=== PATIENT | male | born 1970 | race Caucasian/White ===

== ENCOUNTER 2021-06-30 09:41 | Day surgery (SDC) | payer OTHER, SELFPAY ==
--- NOTE | 2021-06-29 08:51 | HO.ANESPROP2 ---
Documented by User: Marlena Bryan NP 06/29/21 08:52 HPI - Anesthesia Eval Consult details Narrative: 51yo M for Upper Endoscopy with Balloon Dilitation [facility] Past Medical History Medical History (Updated 06/29/21 @ 08:26 by Kayce Daniels, RN) Asthma Barretts esophagus GERD (gastroesophageal reflux disease) Rheumatoid arthritis Social History Social History Advance Directives: No Advance Directives Information Provided: Yes Meds Allergies Allergy/AdvReac Type Severity Reaction Status Date / Time Penicillins [PCN] Allergy Unknown Verified 06/29/21 08:24 Exam Exam Date and Time: June 29, [id number] Assessment and Plan Assessment Anesthesia Assessment: Chart Reviewed Documented by User: Elena Wilburn MD 06/30/21 09:56 [facility], [facility] Past Medical History Medical History (Updated 06/29/21 @ 08:26 by Kayce Daniels RN) Asthma Barretts esophagus GERD (gastroesophageal reflux disease) Rheumatoid arthritis Functional capacity: independent ambulation Family History Family history of problems with anesthesia: No Surgical History History of Problems with Anesthesia: No Social History Social History Advance Directives: No Advance Directives Information Provided: Yes Meds Allergies Allergy/AdvReac Type Severity Reaction Status Date / Time Penicillins [PCN] Allergy Unknown Verified 06/29/21 08:24 Exam Airway Mallampati Class: II TM Dist: >3cm Neck ROM: Full Heart: RRR Lungs: CTA Assessment and Plan Final Anesthetic Review Family History of Problems with Anesthesia: No History of Problems with Anesthesia: No ASA Class: II Final Preanesthetic Review: No Changes in Pt Med Stat, Meds/Allgs Chart Reviewed, Consent Obtained/Reviewed and Anes Risks/Benef Reviewed Patient Risk: Low Procedure Risk: Low Anesthetic Plan Anesthetic Plan: MAC: Disposition: Standard PACU
--- NOTE | 2021-06-30 | ECG_ITS ---
Test Reason : preop Blood Pressure : / mmHG Vent. Rate : 067 BPM Atrial Rate : 067 BPM P-R Int : 182 ms QRS Dur : 146 ms QT Int : 428 ms P-R-T Axes : -10 -74 024 degrees QTc Int : 452 ms Normal sinus rhythm Right bundle branch block Left anterior fascicular block Bifascicular block Abnormal ECG No previous ECGs available Referred By: Elena Wilburn Electronically Signed By:YANCI DOOLEY MD
[2021-06-30 09:54] VITALS: BMI 17.1
--- NOTE | 2021-06-30 10:18 | PC.NURSE ---
question of possible AFIB? Dr Thomason aware and EKG ordered.
[2021-06-30 10:22] VITALS: BP 111/76; PULSE 73; RESP 19; TEMP 36.6; O2SAT 97
--- NOTE | 2021-06-30 10:40 | PC.NURSE ---
Dr Thomason saw EKG, nsr with rbb ok to proceed
[2021-06-30 12:47] VITALS: BP 109/68; PULSE 85; RESP 16; TEMP 36.8; O2SAT 99
--- NOTE | 2021-06-30 12:52 | PM.OP ---
Brief Operative Note Date of Service: 06/30/21 Pre-op diagnosis: Dysphagia Post-op diagnosis: other (Erosive esophagitis, Esophageal stricture, Gastritis) Procedure: EGD with brushings and biopsies Surgeon: Vincent Chau Anesthesia: MAC Was an [employer] used for this Procedure?: No Estimated blood loss (mL): 3.0 Pathology: other (A. Esophageal stricture 37-39cm B. Proximal stomach C. Esophagus at 37. Brushings submitted for cytology) Condition: stable Disposition: PACU
[2021-06-30 13:02] VITALS: BP 100/68; PULSE 78; RESP 16; O2SAT 98
[2021-06-30 13:17] VITALS: BP 105/73; PULSE 68; RESP 16; O2SAT 98
[2021-06-30 13:32] VITALS: BP 115/82; PULSE 69; RESP 16; O2SAT 98
--- NOTE | 2021-06-30 13:39 | OP_ITS ---
SURGEON: Vincent Chau MD INDICATIONS: The patient presents for evaluation of dysphagia and weight loss. Full consent was obtained from him for this, including risks of bleeding and perforation. PREOPERATIVE DIAGNOSIS: POSTOPERATIVE DIAGNOSIS: PROCEDURE PERFORMED: Esophagogastroduodenoscopy with brushings and biopsies. ESTIMATED BLOOD LOSS: COMPLICATIONS: ANESTHESIA: Monitored anesthesia care. ASSISTANTS: SPECIMENS: PREOPERATIVE DIAGNOSES: Dysphagia and weight loss. POSTOPERATIVE DIAGNOSES: Dysphagia and weight loss, ulcerated esophageal stricture, proximal gastritis, rule out neoplasm. DESCRIPTION OF PROCEDURE: The patient was placed in the left lateral decubitus position. The Olympus video gastroscope was passed in the posterior oropharynx and upper esophagus under direct vision. The scope was passed slowly to the distal esophagus. There were few small pieces of retained food particles in the distal esophagus. The distal esophagus was notable for some circumferential narrowing and an approximately 2 cm long ulcerated and very friable stricture. However, the scope was able to be pass this fairly easily and without much pressure. The scope entered into the stomach and was advanced to the pylorus. The duodenum was cannulated to the descending portion. The duodenum including the bulb appeared normal without mass or ulceration. The scope was withdrawn back into the stomach. The gastric antrum and body appeared normal with good peristalsis. The scope was retroflexed visualizing the proximal stomach carefully, which revealed evidence of gastritis and edema with associated friability, but no mass or ulceration. The scope was straightened. Biopsies were obtained from the proximal stomach. The distal esophagus and gastroesophageal junction were carefully inspected. Again, this area was quite ulcerated with friability and edema. There was no definitive mass. There was clearly some narrowing. I initially obtained brushings from the esophagus between 37 and 39 cm. I then obtained multiple biopsies from the same area. The tissue came off in chunks. The entire area was very friable. I also obtained biopsies of the esophagus at 37 cm right above the stricture. Given the significant inflammation and friability, I did not dilate the area. Again, the scope passed this fairly easily. Proximal to 37 cm, the esophageal mucosa appeared normal. The scope was withdrawn from the patient. He tolerated the procedure well and was returned to the recovery area in stable condition. IMPRESSION: 1. Significant distal esophagitis with associated esophageal stricture, status post brushings and biopsies, R/O neoplasm 2. Gastritis. PLAN: The results of the biopsies and brushings will be checked. He will be treated with omeprazole 40 mg b.i.d., which I gave him a prescription for today. He will then continue that and I will plan to repeat the endoscopy within 1 month. Obviously, if there is malignancy, we would proceed in a different direction with CT scan and oncology referral. In the meantime, he will stay on a very soft and primarily full liquid diet to avoid any esophageal obstruction. He will avoid all aspirin and NSAIDs long-term as well. This has all been discussed with the patient's parents today in detail. MD MARLINE Alicia/MARISSA / [id number] MTDD
== END 2021-06-30 14:26 | disposition home or self-care (01) ==
PROVIDERS: PCP Family Medicine; Visit Provider Internal Medicine
PROC: (CPT 43239; principal; 2021-06-30 10:50)
DX: K22.2 Esophageal obstruction (principal); R63.4 Abnormal weight loss; Z68.1 Body mass index [BMI] 19.9 or less, adult; C15.9 Malignant neoplasm of esophagus, unspecified; K21.9 Gastro-esophageal reflux disease without esophagitis; K29.50 Unspecified chronic gastritis without bleeding; K20.80 Other esophagitis without bleeding; J45.909 Unspecified asthma, uncomplicated; M06.9 Rheumatoid arthritis, unspecified; F17.210 Nicotine dependence, cigarettes, uncomplicated; Z79.899 Other long term (current) drug therapy; Z88.0 Allergy status to penicillin
CPT/HCPCS: 43239; 88112; 88305; 88342; 88360; 93005; J2250

== ENCOUNTER 2021-07-07 16:22 | Outpatient (REF) | payer OTHER, SELFPAY ==
[2021-07-07 16:40] LABS: MANUAL DIFF FLAG NO
[2021-07-07 16:59] LABS: Eosinophils Percent Auto 0.2 % (0-4); Hematocrit 44.4 % (42.0-52.0); Hemoglobin 14.8 g/dl (14.0-18.0); Imm Gran Abs Auto 0.03 X10*3/uL (0.00-0.03); Imm Gran Pct Auto 0.6 % (0.0-0.4); Lymphocytes Absolute Auto 0.8 X10*3/uL (1.2-4.9); Lymphocytes Percent Auto 15.8 % (20-40); Mean Corpuscular HGB Conc 33.3 g/dl (31.0-36.0); Mean Corpuscular Hemoglobin 28.7 pg (27.0-33.0); Mean Platelet Volume 9.1 fL (9.4-12.4); Monocytes Absolute Auto 0.2 X10*3/uL (0.1-1.2); Neutrophils Absolute Auto 3.8 x10*3/uL (2.0-8.3); Neutrophils Percent Auto 79.4 % (45-73); Platelet Count 216 X10*3/uL (160-400); Red Blood Count 5.16 X10*6/uL (4.60-5.80); Red Cell Distribution Width 14.6 % (11.0-16.0); White Blood Count 4.8 X10*3/uL (4.8-10.8)
[2021-07-07 17:23] LABS: Alanine Aminotransferase 11 U/L (0-40); Albumin Level 3.3 g/dL (3.5-5.0); Alkaline Phosphatase 101 U/L (39-117); Anion Gap 9 (12-20); Aspartate Amino Transferase 12 U/L (5-37); Bilirubin Direct 0.3 mg/dL (0.0-0.5); Bilirubin Total 0.5 mg/dL (0.0-1.0); Blood Urea Nitrogen 13 mg/dL (9-16); Calcium 9.1 mg/dL (8.4-10.2); Carbon Dioxide 31 mmol/L (22-29); Chloride 96 mmol/L (96-108); Estimated Glomerular Filt Rate > 60; Glucose Random 88 mg/dL (60-115); Potassium 3.8 mmol/L (3.3-5.1); Sodium 132 mmol/L (135-145); Total Protein 8.2 g/dL (6.5-8.0)
== END 2021-07-07 16:23 | disposition home or self-care (01) ==
LOC: HO.LAB 16:22
PROVIDERS: PCP Family Medicine; Visit Provider Internal Medicine
DX: C15.9 Malignant neoplasm of esophagus, unspecified (principal)
CPT/HCPCS: 36415; 80048; 80076; 85025

== ENCOUNTER → 2021-07-14 09:35 | Outpatient (BNVA) | payer OTHER, SELFPAY | PROVIDERS: PCP Family Medicine; Visit Provider Surgery | DX: C15.5 Malignant neoplasm of lower third of esophagus (principal); R13.10 Dysphagia, unspecified; R63.4 Abnormal weight loss | CPT/HCPCS: 99202 ==

== ENCOUNTER 2021-07-25 08:46 | Outpatient (REF) | payer OTHER, SELFPAY ==
--- NOTE | ~2021-07-25 | PE_ITS ---
EXAMINATION: Fluorine-18 FDG PET/CT Scan CLINICAL INDICATION: Initial treatment management. Esophageal cancer, staging. PROCEDURE: 64 minutes following the intravenous administration of 16.4 mCi of fluorine 18 FDG, images from the base of the skull to the mid thighs were obtained using a combined PET/CT scanner with CT scan based attenuation correction. No oral contrast was administered. No intravenous contrast was administered. Transverse, coronal, sagittal, and volume reconstruction projections were obtained. The patient's blood glucose as determined by a finger stick, was 81 mg/dl immediately prior to injection. Total CT exam dose-length product 187.74 mGy-cm * These CT images were obtained using dose optimization techniques as appropriate, variously including the following: Automated exposure control * Adjustment of mA and/or kV according to patient size (this includes techniques or standardized protocols for targeted exams where dose is matched to indication/reason for exam; i.e. extremities or head) * Use of iterative reconstruction technique COMPARISON: No prior imaging studies are available for comparison. FINDINGS: (Slice numbers described in this report are numbered superiorly to inferiorly with slice #1 in the head) NECK AND VISUALIZED HEAD: No foci of abnormal FDG activity are noted. The distribution of FDG activity is physiological. There is no cervical lymphadenopathy. THORAX: There is a focus of mildly increased FDG activity in the distal esophagus near the gastroesophageal junction that shows SUVmax 5.0, slice 118/267. Some wall thickening may be present at this site but this cannot be from adjacent soft tissue structures on these nondiagnostic CT images performed without intravenous contrast and using very low mA. There are no additional foci of abnormal FDG activity in the chest. There are no abnormal foci of FDG activity in the mediastinum, supraclavicular or axillary regions to suggest FDG avid lymphadenopathy. However, likely because of the very low mA used for this CT image acquisition, the contrast is very poor and enlarged mediastinal or axillary lymph nodes cannot be ruled out. No pulmonary nodules are visualized but these CT images are nondiagnostic. There is no pleural fluid or pneumothorax, but because of the poor soft tissue contrast, pericardial fluid cannot be excluded. ABDOMEN AND PELVIS: There is diffusely increased FDG activity in the gastric villanueva without a discrete focal component. In the absence of oral contrast an because of the poor soft tissue contrast likely due to the low mA used for the CT images, the stomach cannot be well evaluated for wall thickening. There is mild FDG activity in the gastrointestinal tract which is likely physiological and without a discrete focal component. Again as previously noted the soft tissue contrast is poor in the CT images are not of diagnostic quality and cannot be evaluated for significant abdominal masses but there are no suspicious foci of abnormally increased FDG activity present. The liver and spleen are unremarkable. The pancreas cannot be from adjacent soft tissues and the kidneys cannot be well evaluated other than there do not appear to be foci of abnormal FDG activity present in either kidney. The renal collecting systems are well visualized. There may be some dilatation of the renal pelves bilaterally because of some prominence on the PET images but these are not well delineated on these nondiagnostic CT images. There are no foci of abnormal FDG activity in the region of either adrenal gland but these cannot be resolved on the CT images. The gallbladder is grossly normal possibly with some dependent calcified sludge present. No definite FDG avid retroperitoneal, mesenteric, pelvic or inguinal lymphadenopathy is present. MUSCULOSKELETAL: There are no foci of abnormal FDG activity in the osseous structures. Minimal degenerative changes are present in the spine predominantly in the midthoracic spine. There are no suspicious sclerotic or lytic lesions present. VASCULAR: Vascular calcifications are present. PET/PET CT fusion skull to thigh IMPRESSION: 1. A focus of mild FDG activity in the distal esophagus is present and is consistent with the known diagnosis of esophageal cancer. 2. Diffuse FDG activity in the stomach wall is present and this may be physiological or due to diffuse gastritis, but the stomach is not expanded because oral contrast was not administered in addition the quality of the CT images is poor due to the poor contrast secondary due to very low mA used for these CT images. Correlation with an oral and IV contrast enhanced diagnostic CT scan of the chest, abdomen, and pelvis is recommended. 3. No additional abnormalities suspicious for FDG avid metastases or other malignant FDG avid lesions are noted.
== END 2021-07-25 08:47 | disposition home or self-care (01) ==
LOC: HO.PET 08:46
PROVIDERS: Visit Provider Surgery
DX: C15.9 Malignant neoplasm of esophagus, unspecified (principal)
CPT/HCPCS: 99202

== ENCOUNTER 2021-07-26 12:41 | Outpatient (REF) | payer OTHER, SELFPAY ==
--- NOTE | ~2021-07-26 | CT_ITS ---
EXAMINATION: CT CHEST, ABDOMEN, PELVIS WITH CONTRAST CLINICAL INFORMATION: Neoplasm of the esophagus. COMPARISON: Comparison report from PET/CT dated 07/25/2021. TECHNIQUE: 85 mL Omnipaque 350. This CT examination was performed using dose optimization techniques as appropriate, variously including the following: *Automated exposure control *Adjustment of mA and/or kV according to patient size (this includes techniques or standardized protocols for targeted exams where dose is matched to indication/reason for exam; i.e. extremities or head) *Use of iterative reconstruction technique. DLP: 242 mGy-cm Axial imaging with coronal and sagittal reformatted images. FINDINGS: CT CHEST: In the topmost cut at the base the neck on the left, there is an enhancing structure measuring 1.5 x 0.6 cm. Immediately below this, there is fullness adjacent to the thyroid. This area measures 1.6 x 2.2 cm. Ultrasound would be recommended here versus CT of the neck. Tumor cannot be excluded. The axillary regions are unremarkable. There is oral contrast within the dilated esophagus to the level of the distal esophagus near the GE junction where there is thickening. There is no bulky mediastinal or hilar adenopathy otherwise. Coronary calcifications are noted. Imaging in the lung hunt[place]. Right Lung: No effusion or infiltrate. No evidence for lesion. Left Lung: No effusion or infiltrate. No suspicion for a lesion. CT ABDOMEN AND PELVIS: The liver demonstrates small low-attenuation lesion adjacent to the diaphragmatic border posterior in the right lobe. This measures 1.1 x 0.7 cm. Certainly a metastatic focus cannot be excluded and attention to follow up would be recommended. Another small lesion in the right lobe proper high in the right lobe measures 3 mm and this is likely a cyst as it is quite low density. Some mixed attenuation adjacent to the falciform ligament may represent vascular variation. Again attention to follow up. The spleen is within normal limits. Densely packed abdominal structures limits evaluation here. The stomach wall is thickened and enhancing and this correlates with the area of uptake on the PET scan. Tumor involvement needs to be considered although this could represent gastritis. Direct visualization is recommended. Area of the adrenal glands is unremarkable. The kidneys are unremarkable. No hydronephrosis. Region of the pancreas is felt to be unremarkable. Again limited evaluation due to densely packed structures. The bowel pattern is felt to be nonobstructing. There are rounded areas of high density adjacent to the aorta and while these could possibly represent varices I must consider high-density lymph nodes. The bladder is unremarkable. The anterior abdominal wall is within normal limits. Prominent prostate is noted. The vascular structures are intact. Review of the bone windows demonstrates mixed sclerotic lucency throughout the bones. Metastatic disease needs to be suspected. CT/CT abdomen pelvis w con IMPRESSION: This exam is felt to be abnormal. In the very top most cuts at the base of the neck on the left, I must consider adenopathy. Dedicated CT of the neck or ultrasound would be recommended to further evaluate. In the chest, there is no evidence of metastatic disease with the exception of the distal esophagus which is thickened consistent with probable known tumor. There is also thickening and hyperenhancement of the stomach and although this could represent gastritis, I must consider tumor. Direct visualization is recommended. As stated, evaluation of the abdomen and pelvis is difficult as there is a lack of fat and structures are densely packed but given this, I feel we are seeing areas of enhancement around the aorta which could well represent hyperdense nodes. Differential would include varices. Again metastatic disease needs to be considered periaortic. Also on this study is a mixed patchy sclerotic appearance to the bones. I must consider bony metastatic disease given this appearance. Small liver lesion is noted. This may be incidental but of course early metastatic disease cannot be excluded. Attention to follow up.
[2021-07-26] MEDS: iohexoL 350 MG/ML 100 ML INFUS..BTL IV (14:50)
== END 2021-07-26 12:42 | disposition home or self-care (01) ==
LOC: HO.CT 12:41
PROVIDERS: Visit Provider Internal Medicine
DX: C15.9 Malignant neoplasm of esophagus, unspecified (principal)
CPT/HCPCS: 71260; 74177; Q9967

== ENCOUNTER 2021-08-02 10:39 | Day surgery (SDC) | payer OTHER, SELFPAY ==
[2021-08-02] VITALS (11 sets, daily range): BP systolic 98–127; BP diastolic 62–77; PULSE 51–70; RESP 16–18; TEMP 36.3–36.8; O2SAT 92–99; BMI 14.9
--- NOTE | ~2021-08-02 | XR_ITS ---
EXAMINATION: PORTABLE CHEST 1 VIEW CLINICAL INFORMATION: resp distress . COMPARISON: 07/26/2021 CT scan. TECHNIQUE: Portable frontal view of the chest was obtained. FINDINGS: Lungs are hypoexpanded with increased central vascular prominence and increased bilateral airspace disease. In the acute setting, edema would be suspected. Atypical infectious etiology considered less likely especially when compared to the recent 07/26/2021 CT scan. There may be a component of atelectasis as well especially at the lung bases on this hypoexpanded film. Cardiac silhouette is prominent. No acute bony abnormality. XR/XR chest 1V IMPRESSION: Although hypoexpanded there is increased central vascular markings and interstitial markings concerning for pulmonary edema in the acute setting.
--- NOTE | ~2021-08-02 | XR_ITS ---
EXAMINATION: XR ABDOMEN WITH DECUBITUS VIEWS CLINICAL INDICATION: Abdominal distention. Status post J-tube placement. COMPARISON: CT 07/26/2021 TECHNIQUE: 2 views of the abdomen. FINDINGS: Direct jejunostomy tube in place. There is diffuse gas-filled appearance of small and large bowel. No abnormal dilatation. Stool noted throughout portions of the colon. No free air on the decubitus view. A few nonspecific air-fluid levels are noted. The lung bases are clear. No acute osseous abnormality. XR/XR abdomen w decubitus IMPRESSION: Jejunostomy tube in place. Diffuse gas-filled appearance of small and large bowel. Ileus is favored.
--- NOTE | ~2021-08-02 | XR_ITS ---
EXAMINATION: XR ABDOMEN KUB CLINICAL INDICATION: Abdominal pain with nausea and vomiting. COMPARISON: 08/04/[address] scan of the chest, abdomen and pelvis dated 07/26/2021. TECHNIQUE: AP view of the abdomen. FINDINGS: Support devices: Jejunal tube in place without significant change. There is a nonobstructive bowel gas pattern. Moderate to large stool seen throughout the colon distally to the rectum, more pronounced proximally. The osseous structures are unchanged. XR/XR KUB IMPRESSION: 1. No significantly dilated loops small bowel representing interval improvement from the previous study with jejunostomy tube in place. 2. Moderate to large colonic stool burden appears mildly increased. Correlate with stool output.
--- NOTE | 2021-08-02 11:03 | HO.ANESPROP2 ---
[facility] Active Problems Active Problems: All Active Problems (Updated 07/14/21 @ 13:46 by Rafaela Geller PA-C) Primary adenocarcinoma of distal third of esophagus (Acute ~06/2021) Dysphagia (Acute) Weight loss, unintentional (Acute) Personal history of nicotine dependence (Acute) Past Medical History Medical History Asthma Barretts esophagus Dysphagia GERD (gastroesophageal reflux disease) Personal history of nicotine dependence Rheumatoid arthritis Family History Family History Brother Eosinophilic esophagitis Father HTN (hypertension) DM2 (diabetes mellitus, type 2) Paternal Grandfather Colon cancer Family history of problems with anesthesia: No Surgical History Surgical History History of endoscopy History of esophagogastroduodenoscopy (EGD) History of Problems with Anesthesia: No Social History Social History Patient Tobacco Use Status: Current everyday Tobacco user Tobacco use type: Cigarette Cigarette Packs Per Day: 0.5 Cigarettes Per Day: 10 Use of substances other than those prescribed or required for medical reasons: No Are you DNR?: No Advance Directives: No Meds Allergies Allergy/AdvReac Type Severity Reaction Status Date / Time Penicillins [PCN] Allergy Unknown Verified 07/25/21 11:22 Active Medications: Current Medications Vancomycin HCl 1,000 mg/ (Sodium Chloride) 270 mls @ 270 mls/hr IV PREOP ONE Stop: 08/02/21 11:38 Lactated Ringer's (Lr) 1,000 mls @ 100 mls/hr IVCONT .Q10H [facility] Home Medications Medication Instructions Recorded Confirmed Last Taken Type albuterol sulfate 90 mcg/actuation 2 puff INHALATION Q6H PRN 07/14/21 07/25/21 Unknown History aerosol inhaler omeprazole 20 mg capsule,delayed 20 mg PO DAILY 07/14/21 07/25/21 08/02/21 History release Exam Exam Date and Time: August 02, 2021 1103 Height,Weight and Vital Signs: Height 6 ft Weight 49.895 kg Last Vital Signs Temp 97.3 F 08/02/21 10:53 Pulse 70 08/02/21 10:53 Resp 18 08/02/21 10:53 BP 107/62 08/02/21 10:53 Pulse Ox 99 08/02/21 10:53 Airway Heart: RRR Lungs: CTA Assessment and Plan Assessment Anesthesia Assessment: Anesthesia Plan Discussed, Smoking Cess. Discussed and Chart Reviewed Final Anesthetic Review Family History of Problems with Anesthesia: No History of Problems with Anesthesia: No NPO: Yes ASA Class: III Final Preanesthetic Review: No Changes in Pt Med Stat, Meds/Allgs Chart Reviewed, Consent Obtained/Reviewed and Anes Risks/Benef Reviewed Patient Risk: Intermediate Procedure Risk: Low Anesthetic Plan Anesthetic Plan: GA Disposition: Standard PACU
--- NOTE | 2021-08-02 11:18 | MHC.SHP ---
Pre-Procedural Eval Section A Date of Service: 08/02/21 The patient is an INPATIENT: No Changes since office visit: Yes Patient answered all questions; No Cold of Flu in the past 2 weeks, No New Medical Problems and No Changes in Medication The History & Physical has been completed within 30 days and I have reviewed it.: Yes Section B Chief Complaint: Esophageal ca Allergies: Allergies Allergy/AdvReac Type Severity Reaction Status Date / Time Penicillins [PCN] Allergy Unknown Verified 07/25/21 11:22 Plan Diagnosis/Plan: Unchanged I have reviewed the history and physical and performed a pertinent physical examination on my patient. No changes have occurred unless specified.
[2021-08-02 11:26] LABS: Anion Gap 11 (12-20); Blood Urea Nitrogen 23 mg/dL (9-16); Carbon Dioxide 32 mmol/L (22-29); Chloride 99 mmol/L (96-108); Creatinine Clr Calc Pharmacy 75.3; Estimated Glomerular Filt Rate > 60; Glucose Random 88 mg/dL (60-115); Potassium 4.5 mmol/L (3.3-5.1); Sodium 137 mmol/L (135-145)
[2021-08-02 11:36] LABS: COVID-19 Test Negative (Negative); IDNOW Serial# 16C4AD1C
[2021-08-02] MEDS: Lactated Ringers 1,000 ML 100 ML IVCONT ×2 (11:40→22:03)
[2021-08-02] MEDS: vancomycin HCL 1,000 MG in 0.9 % Sodium Chloride 250 ML 270 MG IV (11:52)
--- NOTE | 2021-08-02 13:04 | P.OP_ITS ---
Operative Note Operative Note Date of Service: 08/02/21 Narrative: Preoperative diagnosis:Esophageal Carcinoma, protein malnutrition, severe Postoperative diagnosis:Same Procedure: Jejunostomy tube placement Surgeon: Saqib Sommers MD Sharepoint Admin: Sara Egan PA-C Anesthesia: general Indications for procedure: 51-year-old male patient with a esophageal cancer and dysphagia, needing J-tube for nutrition Operative findings:normal anatomy Specimen:none Estimated blood loss: 2 mls Complications:none Procedure details: patient was brought to the OR and placed in a supine position. After administering general anesthesia the patient's abdomen was prepped with ChloraPrep and draped in a sterile fashion. A surgical time-out was called and the consent confirmed. Patient received preoperative antibiotics and Venodyne boots were in place. Local anesthesia consisting of 0.25 % Sensorcaine was infiltrated in the midline around the umbilicus. A curvilinear incision was then made around the umbilicus in the midline and carried out through subcutaneous tissue past the linea alba and into the peritoneum. The colon was reflected superiorly and the jejunum brought up to the incision. This was then followed proximally to the ligament of Treitz. Approximately 2024 cm below the ligament Treitz a pursestring of Surgilon suture was used followed by a 2nd outer pursestring. a 14 Lithuanian jejunostomy tube was obtained. Incision was made in the left upper quadrant and a tonsil clamp used to pull the jejunostomy tube through this opening into the abdominal cavity. An enterotomy was then made at the center of the 2 pursestring sutures. The jejunum was ente red and the jejunostomy tube advanced. The balloon portion of the jejunostomy tube was placed into the jejunum and then the balloon filled with 2 cc of saline solution. The pursestring was tied in the center and the 2nd pursestring tied in the outer. A Witzel was then performed using interrupted 3-0 Surgilon sutures. The skin was then tacked to the abdominal wall using the 3-0 Surgilon sutures x3. The jejunostomy tube was flushed and appeared to function easily. Tube was then secured to the abdominal wall using 3-0 nylon sutures. The wounds were checked for hemostasis. There was no evidence of kinking of the jejunum. Fascia was then closed using a running looped PDS. Skin was then closed using a subcuticular 4-0 Polysorb suture. Steri-Strips 2 x 2 gauze and Tegaderm were then applied. The patient tolerated the procedure well. Sponge, instrument, and needle counts reported as correct. The patient was transferred to PACU in stable condition.
[2021-08-02] MEDS: fentaNYL citrate/PF 100 MCG/2 ML VIAL 25 MCG IVPUSH ×2 (13:47→13:54)
--- NOTE | 2021-08-02 15:49 | MHC.CLN ---
RE: CONSULT HT 6' WT 49.9KG BMI 14.9 PT WITH NEWLY PLACED J-TUBE RECOMMEND PROMOTE AT MAX GOAL RATE 65ML/HR WITH 120ML FREE WATER FLUSHES Q 8 HRS TO PROVIDE 1560KCALS, 97.5G PROTEIN, 1669ML TOTAL WATER FROM FORMULA AND FLUSHES START FEEDING AT 20ML/HR AND INCREASE BY 10ML Q 4 HRS UNTIL MAX GOAL RATE IS ACHIEVED DO NOT CHECK RESIDUALS WITH A J-TUBE! MONITOR FOR TOLERANCE AND LYTES FULL NUTRITION ASSESSMENT TO FOLLOW
[2021-08-02] MEDS: Morphine Sulfate 2 MG/ML CARTRIDGE 3 MG IVPUSH (16:27)
[2021-08-02] MEDS: ondansetron HCL 4 MG/2 ML VIAL IVPUSH (22:23)
[2021-08-03] VITALS (7 sets, daily range): BP systolic 91–127; BP diastolic 63–83; PULSE 67–83; RESP 17–20; TEMP 36.2–37; O2SAT 94–99; BMI 14.9
[2021-08-03] MEDS: oxyCODONE HCl Immed Release 5 MG TABLET PO (01:56)
[2021-08-03] MEDS: Morphine Sulfate 2 MG/ML CARTRIDGE 3 MG IVPUSH ×2 (04:50→16:02)
--- NOTE | 2021-08-03 05:32 | PC.NURSE ---
Pt seen on bed alert and oriented and able to make needs known, JTube feeding going on and titrated up according to order, pt tolerated, still c/o tenderness on the JT site, c/o on and off nausea nd frequent burping, prn Zofran given, prn Oxycodone given with minimal effect, around 1 am pt c/o unable to void, c/o hypogastric discomfort, bladder scan =530ml, DR. Pereyra was notified, ordered for straight cath, tried to do straight cath but had much resisitance, clin sup came to try, encouraged pt to stand up and void on a urinal and was ble to pee =50ml concentrated urine, straight cath done by Shania Banks and obtained 500ml concentrated clear urine, pt felt relief after.
--- NOTE | 2021-08-03 07:21 | HO.POSTANES ---
Post Anesthesia Evaluation Post Anesthesia Evaluation Vital Signs: Vital Signs Temp Pulse Resp BP Pulse Ox 08/03/21 03:38 98.3 F 67 17 110/65 96 08/03/21 01:06 80 18 98/63 98 08/02/21 20:31 65 98/72 Anesthesia: General Mental Status: Awake Pain Control: Satisfactory Nausea/Vomiting: None Hydration: Adequate Anesthesia-Related Issues: No Anes. Related Issues
[2021-08-03] MEDS: Lactated Ringers 1,000 ML 100 ML IVCONT ×2 (07:33→17:13)
--- NOTE | 2021-08-03 08:16 | P.PNGS_ITS ---
Subjective Subjective Date of Service: 08/03/21 Interval history: Patient reports incisional pain, belching, and nausea during the night. Pain medications do help with the pain. He denies any vomiting. J-tube currently up to 50 mL per hour. He denies flatus or BM. Physical Exam Vital Signs: Vital Signs: Last Vital Signs Temp 98.2 F 08/03/21 07:28 Pulse 75 08/03/21 07:28 Resp 20 08/03/21 07:28 BP 115/78 08/03/21 07:28 Pulse Ox 94 08/03/21 07:28 BMI result Body Mass Index 14.9 Const: General: ill appearing and tired appearing Nutritional Appearance: cachectic Orientation/consciousness: patient oriented x3 Neck: Other: Neck veins flat Resp: Other: Breathing comfortably on room air, no respiratory distress GI: Other: Soft and nondistended, incision is clean and intact. J-tube intact and functioning properly. Skin: Other: Warm and dry Neuro: General: patient oriented x3 Objective Data Active Medications Acetaminophen (Acetaminophen 325 Mg Tablet) 650 mg PO Q6H PRN PRN Reason: Pain, Mild (Pain Scale 1-3) Enoxaparin Sodium (Enoxaparin Sodium 40 Mg/0.4 Ml Syringe) 40 mg SUBCUT Q24H [facility] Last Admin: 08/02/21 16:40 Dose: Not Given Documented by: GEOFFREY Non-Admin Reason: Patient Refused Lactated Ringer's (Lr) 1,000 mls @ 100 mls/hr IVCONT .Q10H [facility] Last Admin: 08/03/21 07:33 Dose: 100 mls/hr Documented by: BOSTON Melatonin (Melatonin 3 Mg Tablet) 3 mg PO BEDTIME PRN PRN Reason: Insomnia Morphine Sulfate (Morphine Sulfate 2 Mg/Ml Cartridge) 3 mg IVPUSH Q3H PRN; Protocol PRN Reason: Pain, Severe (Pain Scale 7-10) Last Admin: 08/03/21 04:50 Dose: 3 mg Documented by: PRAFUL Ondansetron HCl (Ondansetron Hcl 4 Mg/2 Ml Vial) 4 mg IVPUSH Q8H PRN PRN Reason: Nausea and Vomiting Last Admin: 08/02/21 22:23 Dose: 4 mg Documented by: PRAFUL Oxycodone HCl (Oxycodone Hcl Immed Release 5 Mg Tablet) 5 mg PO Q4H PRN PRN Reason: Pain, Moderate (Pain Scale 4-6 Last Admin: 08/03/21 01:56 Dose: 5 mg Documented by: PRAFUL Pharmacy Consult (Consult Rx Perform Med Rec) 1 each MISCELLANE ONCE PRN PRN Reason: Consult order Sodium Chloride (0.9 % Sodium Chloride Flush 3 Ml Syringe) 3 ml IVFLUSH QSHIFT [facility] Last Admin: 08/03/21 07:36 Dose: Not Given Documented by: BOSTON Non-Admin Reason: IV Running Labs CBC & Chem 7: 08/02/21 11:04 Labs: Laboratory Results - last 24 hr 08/02/21 08/02/21 10:52 11:04 Anion Gap 11 L Estim Creat Clear Calc 75.3 Estimated GFR > 60 Random Glucose 88 Calcium 9.0 COVID-19 ([facility]) Negative COVID-19 Clin Com See Note Procedures Date of Service Date of Service: 08/03/21 Progress Note: A&P Assessment and plan (1) Primary adenocarcinoma of distal third of esophagus: Status: Acute (2) Dysphagia: Status: Acute (3) S/P jejunostomy: Status: Acute Plan Pod 1 status post jejunostomy tube placement. Patient reports belching and nausea this morning. Jejunostomy tube is intact and functioning properly. If belching continues may need to deflate the jejunostomy tube balloon. Will continue to monitor today and hold on discharge. Tube feed goals 65 mL per hour. Will need guidance on home feedings for patient once discharged. Time Spent With Patient Time: Total time spent is greater than 50% in coordination of care (as documented) at patient's floor/unit and/or counseling patient: Quality Stroke Does the patient have a stroke diagnosis?: No VTE Prior VTE?: No VTE Risk Level:: Surgical - high VTE Device Contraindication: N/A - Device Ordered VTE Drug Contraindication: N/A - Med Ordered
--- NOTE | 2021-08-03 08:21 | P.PNGS_ITS ---
Subjective Subjective Date of Service: 08/03/21 Interval history: C/o bloating, belching this morning. Has not been passing flatus. Was straight cathed overnight as he was unable to void. Physical Exam Vital Signs: Vital Signs: Last Vital Signs Temp 98.2 F 08/03/21 07:28 Pulse 75 08/03/21 07:28 Resp 20 08/03/21 07:28 BP 115/78 08/03/21 07:28 Pulse Ox 94 08/03/21 07:28 BMI result Body Mass Index 14.9 Const: General: no acute distress, alert and other (uncomfortable appearing) Nutritional Appearance: cachectic Orientation/consciousness: patient oriented x3 Resp: Effort & Inspection: normal respiratory effort GI: Other: J tube in place Inspection: No distended and Yes incision (dressing intact) Palpation (GI): Soft to palpation, Tenderness to palpation present (GI), no guarding and not rigid Skin: General skin exam: no rashes or lesions noted Neuro: General: patient oriented x3 Objective Data Active Medications Acetaminophen (Acetaminophen 325 Mg Tablet) 650 mg PO Q6H PRN PRN Reason: Pain, Mild (Pain Scale 1-3) Enoxaparin Sodium (Enoxaparin Sodium 40 Mg/0.4 Ml Syringe) 40 mg SUBCUT Q24H [facility] Last Admin: 08/02/21 16:40 Dose: Not Given Documented by: GEOFFREY Non-Admin Reason: Patient Refused Lactated Ringer's (Lr) 1,000 mls @ 100 mls/hr IVCONT .Q10H [facility] Last Admin: 08/03/21 07:33 Dose: 100 mls/hr Documented by: BOSTON Melatonin (Melatonin 3 Mg Tablet) 3 mg PO BEDTIME PRN PRN Reason: Insomnia Morphine Sulfate (Morphine Sulfate 2 Mg/Ml Cartridge) 3 mg IVPUSH Q3H PRN; Protocol PRN Reason: Pain, Severe (Pain Scale 7-10) Last Admin: 08/03/21 04:50 Dose: 3 mg Documented by: PRAFUL Ondansetron HCl (Ondansetron Hcl 4 Mg/2 Ml Vial) 4 mg IVPUSH Q8H PRN PRN Reason: Nausea and Vomiting Last Admin: 08/02/21 22:23 Dose: 4 mg Documented by: PRAFUL Oxycodone HCl (Oxycodone Hcl Immed Release 5 Mg Tablet) 5 mg PO Q4H PRN PRN Reason: Pain, Moderate (Pain Scale 4-6 Last Admin: 08/03/21 01:56 Dose: 5 mg Documented by: PRAFUL Pharmacy Consult (Consult Rx Perform Med Rec) 1 each MISCELLANE ONCE PRN PRN Reason: Consult order Sodium Chloride (0.9 % Sodium Chloride Flush 3 Ml Syringe) 3 ml IVFLUSH QSHIFT [facility] Last Admin: 08/03/21 07:36 Dose: Not Given Documented by: BOSTON Non-Admin Reason: IV Running Labs CBC & Chem 7: 08/02/21 11:04 Labs: Laboratory Results - last 24 hr 08/02/21 08/02/21 10:52 11:04 Anion Gap 11 L Estim Creat Clear Calc 75.3 Estimated GFR > 60 Random Glucose 88 Calcium 9.0 COVID-19 ([facility]) Negative COVID-19 Clin Com See Note Procedures Date of Service Date of Service: 08/03/21 Progress Note: A&P Assessment and plan (1) S/P jejunostomy: Status: Acute (2) Primary adenocarcinoma of distal third of esophagus: Status: Acute (3) Protein-calorie malnutrition, severe: Status: Acute Plan 51 year old male admitted s/p jejunostomy tube placement for esophagael CA, malnutrition. Started on tube feeds per nutrition recs yesterday. He c/o belching and bloating this morning. VSS. Abd- distended and tympanitic. J tube in place, dressing intact. Plan: Pain control, encouraged OOB/ambulation to stimulate GI function. Continue tube feeds. May need to deflate balloon on J tube if symptoms persist this afternoon. Will reassess. Urinary retention- required straight cath last night. Encouraged OOB. Trial void again, bladder scan. If continues to be unable to void will add flodayna alstoney. Time Spent With Patient Time: Total time spent is greater than 50% in coordination of care (as documented) at patient's floor/unit and/or counseling patient: Quality Stroke Does the patient have a stroke diagnosis?: No VTE Prior VTE?: No VTE Risk Level:: Surgical - high VTE Device Contraindication: N/A - Device Ordered VTE Drug Contraindication: N/A - Med Ordered
--- NOTE | 2021-08-03 11:53 | MHC.CLN ---
SEE FULL CLINICAL NUTRITION ASSESSMENT
[2021-08-03 12:24] LABS: Hematocrit 41.6 % (42.0-52.0); Hemoglobin 13.6 g/dl (14.0-18.0); Mean Corpuscular HGB Conc 32.7 g/dl (31.0-36.0); Mean Corpuscular Hemoglobin 29.2 pg (27.0-33.0); Mean Corpuscular Volume 89.5 fL (80.0-98.0); Mean Platelet Volume 8.6 fL (9.4-12.4); Platelet Count 198 X10*3/uL (160-400); Red Blood Count 4.65 X10*6/uL (4.60-5.80); White Blood Count 6.5 X10*3/uL (4.8-10.8)
[2021-08-03] MEDS: ondansetron HCL 4 MG/2 ML VIAL IVPUSH (12:29)
[2021-08-03 12:49] LABS: Albumin Level 2.6 g/dL (3.5-5.0); Anion Gap 9 (12-20); Blood Urea Nitrogen 27 mg/dL (9-16); Calcium 8.8 mg/dL (8.4-10.2); Carbon Dioxide 33 mmol/L (22-29); Chloride 99 mmol/L (96-108); Creatinine Clr Calc Pharmacy 69.2; Estimated Glomerular Filt Rate > 60; Glucose Random 142 mg/dL (60-115); Magnesium 1.8 mg/dL (1.6-2.6); Phosphorus 4.3 mg/dL (2.7-4.5); Potassium 5.6 mmol/L (3.3-5.1); Sodium 135 mmol/L (135-145)
--- NOTE | 2021-08-03 14:38 | MHC.CM.PN ---
PATIENT LIVES ALONE. UPON DISCHARGE, HE WILL BE STAYING AT HIS PARENT'S HOME IN [place]. HE HAS NO HCP ON FILE AND IS WILLING TO ASSIGN HIS PARENTS HCP AGENTS. SURGICAL PA ENTERED ROOM TO MEET WITH PATIENT. HE IS AWARE THAT CASE MANAGEMENT CAN RETURN AT ANOTHER TIME FOR HCP COMPLETION AND CONTINUATION OF ASSESSMENT. IMM 08/03 IN CHART
[2021-08-03] MEDS: Enoxaparin Sodium 40 MG/0.4 ML SYRINGE SUBCUT (16:07)
[2021-08-03] MEDS: 0.9 % Sodium Chloride Flush 3 ML SYRINGE IVFLUSH (16:10)
[2021-08-04] VITALS (7 sets, daily range): BP systolic 113–135; BP diastolic 71–96; PULSE 64–105; RESP 16–20; TEMP 36.5–36.9; O2SAT 93–98
[2021-08-04] MEDS: Lactated Ringers 1,000 ML 100 ML IVCONT (00:39)
[2021-08-04] MEDS: Morphine Sulfate 2 MG/ML CARTRIDGE 3 MG IVPUSH ×2 (03:32→06:47)
--- NOTE | 2021-08-04 07:19 | P.PNGS_ITS ---
Subjective Subjective Date of Service: 08/04/21 Patient reports: still having pain, flatus, no bowel movement, nausea and vomiting Interval history: Episode of vomiting yesterday No vomiting overnight though. Incisional pain Physical Exam Vital Signs: Vital Signs: Last Vital Signs Temp 97.8 F 08/04/21 03:17 Pulse 76 08/04/21 03:17 Resp 17 08/04/21 03:17 BP 113/71 08/04/21 03:17 Pulse Ox 97 08/04/21 03:17 BMI result Body Mass Index 14.9 Const: General: no acute distress and ill appearing Nutritional Appearance: cachectic Orientation/consciousness: patient oriented x3 Resp: Effort & Inspection: normal respiratory effort GI: Other: distended, soft, incision clean and intact. Neuro: General: patient oriented x3 Extrem: General: Yes no clubbing, cyanosis or edema Objective Data Active Medications Acetaminophen (Acetaminophen 325 Mg Tablet) 650 mg PO Q6H PRN PRN Reason: Pain, Mild (Pain Scale 1-3) Enoxaparin Sodium (Enoxaparin Sodium 40 Mg/0.4 Ml Syringe) 40 mg SUBCUT Q24H [facility] Last Admin: 08/03/21 16:07 Dose: 40 mg Documented by: SARAH Promethazine HCl 12.5 mg/ (Sodium Chloride) 50.5 mls @ 202 mls/hr IV Q6H PRN PRN Reason: Nausea and Vomiting Melatonin (Melatonin 3 Mg Tablet) 3 mg PO BEDTIME PRN PRN Reason: Insomnia Morphine Sulfate (Morphine Sulfate 2 Mg/Ml Cartridge) 3 mg IVPUSH Q3H PRN; Protocol PRN Reason: Pain, Severe (Pain Scale 7-10) Last Admin: 08/04/21 06:47 Dose: 3 mg Documented by: ROBERTO Ondansetron HCl (Ondansetron Hcl 4 Mg/2 Ml Vial) 4 mg IVPUSH Q8H PRN PRN Reason: Nausea and Vomiting Last Admin: 08/03/21 12:29 Dose: 4 mg Documented by: COTDARIN Oxycodone HCl (Oxycodone Hcl Immed Release 5 Mg Tablet) 5 mg PO Q4H PRN PRN Reason: Pain, Moderate (Pain Scale 4-6 Last Admin: 08/03/21 01:56 Dose: 5 mg Documented by: PRAFUL Pharmacy Consult (Consult Rx Perform Med Rec) 1 each MISCELLANE ONCE PRN PRN Reason: Consult order Sodium Chloride (0.9 % Sodium Chloride Flush 3 Ml Syringe) 3 ml IVFLUSH QSHIFT [facility] Last Admin: 08/03/21 19:55 Dose: Not Given Documented by: ROBERTO Non-Admin Reason: IV Running Labs CBC & Chem 7: 08/03/21 12:17 08/03/21 12:17 Labs: Laboratory Results - last 24 hr 08/03/21 08/03/21 12:17 12:17 MCV 89.5 MCH 29.2 MCHC 32.7 RDW 16.0 Plt Count 198 MPV 8.6 L Absolute Nucleated RBC 0.000 Nucleated RBC % (auto) 0.0 Anion Gap 9 L Estim Creat Clear Calc 69.2 Estimated GFR > 60 Random Glucose 142 H D Calcium 8.8 Phosphorus 4.3 Magnesium 1.8 Albumin 2.6 L D Procedures Date of Service Date of Service: 08/04/21 Progress Note: A&P Assessment and plan (1) S/P jejunostomy: Status: Acute (2) Primary adenocarcinoma of distal third of esophagus: Status: Acute Plan Patient with abdominal distension, incisional pain, nausea. Currently on goal with TF. Will check abdominal xray. Stop IVF. OOB and ambulate. Check labs. Time Spent With Patient Time: Total time spent is greater than 50% in coordination of care (as documented) at patient's floor/unit and/or counseling patient: Quality Stroke Does the patient have a stroke diagnosis?: No VTE Prior VTE?: No VTE Risk Level:: Surgical - high VTE Device Contraindication: N/A - Device Ordered VTE Drug Contraindication: N/A - Med Ordered
--- NOTE | 2021-08-04 08:01 | PM.PNGS ---
Subjective Subjective Date of Service: 08/04/21 Interval history: Complaining of significant pain this morning. Was unable to even move self to stretcher for transport to radiology. He is passing flatus. No further vomiting since yesterday. Tube feeds were resumed and he is now at goal. Physical Exam Vital Signs: Vital Signs: Last Vital Signs Temp 97.8 F 08/04/21 03:17 Pulse 76 08/04/21 03:17 Resp 17 08/04/21 03:17 BP 113/71 08/04/21 03:17 Pulse Ox 97 08/04/21 03:17 BMI result Body Mass Index 14.9 Const: General: no acute distress and alert; No comfortable Nutritional Appearance: cachectic Resp: Effort & Inspection: normal respiratory effort Skin: General skin exam: no rashes or lesions noted Objective Data Active Medications Acetaminophen (Acetaminophen 325 Mg Tablet) 650 mg PO Q6H PRN PRN Reason: Pain, Mild (Pain Scale 1-3) Enoxaparin Sodium (Enoxaparin Sodium 40 Mg/0.4 Ml Syringe) 40 mg SUBCUT Q24H [facility] Last Admin: 08/03/21 16:07 Dose: 40 mg Documented by: SARAH Promethazine HCl 12.5 mg/ (Sodium Chloride) 50.5 mls @ 202 mls/hr IV Q6H PRN PRN Reason: Nausea and Vomiting Melatonin (Melatonin 3 Mg Tablet) 3 mg PO BEDTIME PRN PRN Reason: Insomnia Morphine Sulfate (Morphine Sulfate 4 Mg/Ml Cartridge) 4 mg IVPUSH Q3H PRN; Protocol PRN Reason: Pain, Severe (Pain Scale 7-10) Ondansetron HCl (Ondansetron Hcl 4 Mg/2 Ml Vial) 4 mg IVPUSH Q8H PRN PRN Reason: Nausea and Vomiting Last Admin: 08/03/21 12:29 Dose: 4 mg Documented by: COTEMA Oxycodone HCl (Oxycodone Hcl Immed Release 5 Mg Tablet) 5 mg PO Q4H PRN PRN Reason: Pain, Moderate (Pain Scale 4-6 Last Admin: 08/03/21 01:56 Dose: 5 mg Documented by: PRAFUL Pharmacy Consult (Consult Rx Perform Med Rec) 1 each MISCELLANE ONCE PRN PRN Reason: Consult order Sodium Chloride (0.9 % Sodium Chloride Flush 3 Ml Syringe) 3 ml IVFLUSH QSHIFT [facility] Last Admin: 08/04/21 07:23 Dose: Not Given Documented by: JOSE Non-Admin Reason: IV Running Labs CBC & Chem 7: 08/03/21 12:17 08/03/21 12:17 Labs: Laboratory Results - last 24 hr 08/03/21 08/03/21 12:17 12:17 MCV 89.5 MCH 29.2 MCHC 32.7 RDW 16.0 Plt Count 198 MPV 8.6 L Absolute Nucleated RBC 0.000 Nucleated RBC % (auto) 0.0 Anion Gap 9 L Estim Creat Clear Calc 69.2 Estimated GFR > 60 Random Glucose 142 H D Calcium 8.8 Phosphorus 4.3 Magnesium 1.8 Albumin 2.6 L D Progress Note: A&P Assessment and plan (1) Protein-calorie malnutrition, severe: Status: Acute (2) S/P jejunostomy: Status: Acute (3) Primary adenocarcinoma of distal third of esophagus: Status: Acute Time Spent With Patient Time: Total time spent is greater than 50% in coordination of care (as documented) at patient's floor/unit and/or counseling patient: Quality Stroke Does the patient have a stroke diagnosis?: No VTE Prior VTE?: No VTE Risk Level:: Surgical - high VTE Device Contraindication: N/A - Device Ordered VTE Drug Contraindication: N/A - Med Ordered
[2021-08-04] MEDS: Morphine Sulfate 4 MG/ML CARTRIDGE IVPUSH ×4 (09:38→23:55)
[2021-08-04] MEDS: Ketorolac Tromethamine 15 MG/ML VIAL IVPUSH ×2 (10:31→17:08)
[2021-08-04] MEDS: ondansetron HCL 4 MG/2 ML VIAL IVPUSH (12:13)
[2021-08-04] MEDS: bisacodyL 10 MG SUPP.RECT PR (12:14)
[2021-08-04] MEDS: oxyCODONE HCl Immed Release 5 MG TABLET PO (14:12)
[2021-08-04] MEDS: 0.9 % Sodium Chloride Flush 3 ML SYRINGE IVFLUSH ×2 (14:13→20:12)
--- NOTE | 2021-08-04 14:44 | MHC.CLN ---
F/U PT IS SEVERELY MALNOURISHED SEE ALSO FULL CLINICAL NUTRITION ASSESSMENT DATED 08/03/21 DIET RX: NEW JTUBE PLACED 08/[address] ROSALES PT RECEIVING TF PROMOTE AT MAX GOAL RATE 65ML/HR WITH 120CC [facility] Q 8 HRS PROVIDES 1560KCALS (31KCALS/KG), 97.5G PROTEIN (1.95G/KG), 1669ML TOTAL WATER FROM FORMULA AND FLUSHES (33ML/KG) NOTED ABDOMINAL DISTENTION AND NAUSEA PER MD-HOLD TF NEEDED; CONSIDER PPN/TPN IF NOT TOLERATING JTUBE MONITOR TOLERANCE AND LYTES-PT MAY BE AT HIGH RISK FOR RE-FEEDING (MONITOR K, PHOS AND MG) DO NOT CHECK RESIDUALS WITH JTUBE! CONSULT RD VIA TIGER TEXT IF NEEDED
[2021-08-04] MEDS: Enoxaparin Sodium 40 MG/0.4 ML SYRINGE SUBCUT (17:07)
[2021-08-04] MEDS: Dextrose 5 % and 0.9 % NaCl 1,000 ML 80 ML IVCONT (17:09)
--- NOTE | 2021-08-04 17:20 | PC.NURSE ---
tube feed stoped at [address] Sommers,to restart in one hr at 1800 at 30 ml/hr and increase as toll to max of 65.
[2021-08-04] MEDS: Mineral OiL enema 133 ML ENEMA PR (18:30)
--- NOTE | 2021-08-04 19:23 | PC.NURSE ---
Patient is refusing to start tube feeding at 1800 per Md recommendation,states wants to wait longer because since feeding stopped he feels less pain. Relieving RN aware.
--- NOTE | 2021-08-04 20:33 | PC.NURSE ---
Pt vomited around 50mls of dark brown bile since 1899. Pt refusing restart of his feedings stating he was having too much pain, is still vomiting and feels full. I medicated him with scheduled IV tylenol and IV Morphine for [address] Librado Pereyra notified. He said to hold feedings and keep fluids infusing as ordered. Warm blanket also given to patient for comfort. Will continue to monitor.
--- NOTE | 2021-08-05 | ECG_ITS ---
Test Reason : CP Blood Pressure : / mmHG Vent. Rate : 127 BPM Atrial Rate : 000 BPM P-R Int : 000 ms QRS Dur : 150 ms QT Int : 342 ms P-R-T Axes : 000 -65 094 degrees QTc Int : 497 ms Sinus tachycardia Right bundle branch block Left anterior fascicular block Bifascicular block Abnormal ECG When compared to the previous EKG of Sinus tachycardia present Referred By: Saqib Sommers Electronically Signed By:Sincere Chase
[2021-08-05] MEDS: Morphine Sulfate 4 MG/ML CARTRIDGE IVPUSH ×4 (03:57→16:24)
[2021-08-05] MEDS: Dextrose 5 % and 0.9 % NaCl 1,000 ML 80 ML IVCONT (03:57)
[2021-08-05 04:00] VITALS: BP 101/73; PULSE 120; RESP 16; TEMP 36.7; O2SAT 95
[2021-08-05] MEDS: ondansetron HCL 4 MG/2 ML VIAL IVPUSH (04:04)
[2021-08-05 06:07] LABS: Hematocrit 36.9 % (42.0-52.0); Hemoglobin 11.9 g/dl (14.0-18.0); Mean Corpuscular HGB Conc 32.2 g/dl (31.0-36.0); Mean Corpuscular Hemoglobin 29.4 pg (27.0-33.0); Mean Corpuscular Volume 91.1 fL (80.0-98.0); Mean Platelet Volume 9.8 fL (9.4-12.4); Platelet Count 153 X10*3/uL (160-400); Red Blood Count 4.05 X10*6/uL (4.60-5.80); Red Cell Distribution Width 15.9 % (11.0-16.0); White Blood Count 3.6 X10*3/uL (4.8-10.8)
[2021-08-05 06:20] LABS: Anion Gap 15 (12-20); Blood Urea Nitrogen 54 mg/dL (9-16); Calcium 8.1 mg/dL (8.4-10.2); Carbon Dioxide 26 mmol/L (22-29); Chloride 99 mmol/L (96-108); Estimated Glomerular Filt Rate 38; Glucose Random 178 mg/dL (60-115); Potassium 5.3 mmol/L (3.3-5.1); Sodium 135 mmol/L (135-145)
[2021-08-05 06:23] LABS: Magnesium 2.1 mg/dL (1.6-2.6); Phosphorus 5.9 mg/dL (2.7-4.5)
[2021-08-05 06:30] VITALS: PULSE 122
--- NOTE | 2021-08-05 06:39 | PC.NURSE ---
AM HR 120 and again 122 a short time later. Both times I rechecked manually via radial and apical pulse. Pt very cold to the touch despite frequent warm blankets applied throughout the night. This mornings temp was 96.2 (oral and temporal). Warmed patient with hot packs under arms and feet and warm blankets then retook temp, 98.3 temporal. Feeding remained off per Dr Pereyra and IV fluids infused as ordered. Pt continued with small amounts of occasional vomiting of bile throughout the night-Zofran given. Pt also continues with 8-10/10 abdominal pain-see MAR for times medicated. Dr Pereyra notified of all the above. Phone order for KUB, CBC and BMP for this am.
[2021-08-05] MEDS: Ketorolac Tromethamine 15 MG/ML VIAL IVPUSH (08:05)
[2021-08-05 08:30] VITALS: BP 94/60; PULSE 118
--- NOTE | 2021-08-05 09:10 | P.PNGS_ITS ---
Subjective Subjective Date of Service: 08/05/21 Interval history: continues to have postop pain says he has had this since immediately postop not tolerating tube feeds - has nausea and vomitting xrays done yesterday afternoon - c/w ileus, Jtube in place Physical Exam Vital Signs: Vital Signs: Last Vital Signs Temp 98.0 F 08/05/21 04:00 Pulse 118 H 08/05/21 08:30 Resp 16 08/05/21 04:00 BP 94/60 08/05/21 08:30 Pulse Ox 95 08/05/21 04:00 BMI result Body Mass Index 14.9 Const: Other: looks uncomfortable Nutritional Appearance: cachectic Orientation/consciousness: patient oriented x3 Resp: Effort & Inspection: normal respiratory effort Cardio: Other: reg rhythm although tachy GI: Other: tender still jej tube in place incision clean mildly distended Neuro: General: patient oriented x3 Objective Data Active Medications Albuterol Sulfate (Albuterol Sulfate 90 Mcg 8 Gm Inhaler) 2 puff INHALE Q6H PRN PRN Reason: Shortness Of Breath Enoxaparin Sodium (Enoxaparin Sodium 40 Mg/0.4 Ml Syringe) 40 mg SUBCUT Q24H [facility] Last Admin: 08/04/21 17:07 Dose: 40 mg Documented by: JOSE Promethazine HCl 12.5 mg/ (Sodium Chloride) 50.5 mls @ 202 mls/hr IV Q6H PRN PRN Reason: Nausea and Vomiting Acetaminophen (Ofirmev) 1,000 mg in 100 mls @ 400 mls/hr IV Q6H [facility] Last Infusion: 08/05/21 08:29 Dose: 0 mls/hr Documented by: JOSE Dextrose/Sodium Chloride (D5ns) 1,000 mls @ 80 mls/hr IVCONT .[id number] [facility] Last Admin: 08/05/21 03:57 Dose: 80 mls/hr Documented by: MONIQUE Ketorolac Tromethamine (Ketorolac Tromethamine 15 Mg/Ml Vial) 15 mg IVPUSH Q6H PRN PRN Reason: abdominal pain Last Admin: 08/05/21 08:05 Dose: 15 mg Documented by: JOSE Leflunomide (Leflunomide 10 Mg Tablet) 10 mg PO DAILY [facility] Last Admin: 08/05/21 08:06 Dose: Not Given Documented by: JOSE Non-Admin Reason: Patient Refused Melatonin (Melatonin 3 Mg Tablet) 3 mg PO BEDTIME PRN PRN Reason: Insomnia Mineral Oil (Mineral Oil Enema 133 Ml Enema) 133 ml [place] ONCE PRN PRN Reason: Constipation Last Admin: 08/04/21 18:30 Dose: 133 ml Documented by: JOSE Morphine Sulfate (Morphine Sulfate 4 Mg/Ml Cartridge) 4 mg IVPUSH Q3H PRN; Protocol PRN Reason: Pain, Severe (Pain Scale 7-10) Last Admin: 08/05/21 03:57 Dose: 4 mg Documented by: MONIQUE Omeprazole (Omeprazole 20 Mg/10 Ml Susp.Recon) 40 mg PO BID@0630,1630 [facility] Last Admin: 08/05/21 06:13 Dose: 40 mg Documented by: MONIQUE Ondansetron HCl (Ondansetron Hcl 4 Mg/2 Ml Vial) 4 mg IVPUSH Q8H PRN PRN Reason: Nausea and Vomiting Last Admin: 08/05/21 04:04 Dose: 4 mg Documented by: MONIQUE Oxycodone HCl (Oxycodone Hcl Immed Release 5 Mg Tablet) 5 mg PO Q4H PRN PRN Reason: Pain, Moderate (Pain Scale 4-6 Last Admin: 08/04/21 14:12 Dose: 5 mg Documented by: JOSE Pharmacy Consult (Consult Rx Perform Med Rec) 1 each MISCELLANE ONCE PRN PRN Reason: Consult order Sodium Chloride (0.9 % Sodium Chloride Flush 3 Ml Syringe) 3 ml IVFLUSH QSHIFT [facility] Last Admin: 08/05/21 08:06 Dose: Not Given Documented by: JOSE Non-Admin Reason: IV Running Labs CBC & Chem 7: 08/05/21 05:30 08/05/21 05:30 Labs: Laboratory Results - last 24 hr 08/05/21 08/05/21 08/05/21 05:30 05:30 05:30 MCV 91.1 MCH 29.4 MCHC 32.2 RDW 15.9 Plt Count 153 L MPV 9.8 Absolute Nucleated RBC 0.000 Nucleated RBC % (auto) 0.0 Anion Gap 15 Estim Creat Clear Calc 32.0 Estimated GFR 38 Random Glucose 178 H Calcium 8.1 L D Phosphorus 5.9 H Magnesium 2.1 Procedures Date of Service Date of Service: 08/05/21 Progress Note: A&P Assessment and plan (1) S/P jejunostomy: Status: Acute Assessment and Plan: for esoph cancer continues to have nausea and pain repeat xray done this am - c/w ileus type pattern hold tube feeds HR elevated, BP was on low side - likely due to pain issues, with narcotics given extra bolus Jej tube placed on low wall suction - dark enteric contents Hg stable BUN, crea high K better Hospitalist consult; likely STEVEN secondary to volume depletion add eliza castro updated by phone - [phone] Time Spent With Patient Time: Total time spent is greater than 50% in coordination of care (as documented) at patient's floor/unit and/or counseling patient: Quality Stroke Does the patient have a stroke diagnosis?: No VTE Prior VTE?: No VTE Risk Level:: Surgical - high VTE Device Contraindication: N/A - Device Ordered VTE Drug Contraindication: N/A - Med Ordered
[2021-08-05] MEDS: Metoclopramide HCl 10 MG/2 ML VIAL 5 MG IVPUSH ×2 (10:34→16:24)
--- NOTE | 2021-08-05 10:43 | P.CONIM_ITS ---
History of Present Illness Data of Consult Service Date: 08/05/21 Primary Care Provider: Jose Hill MD HPI Reason for consult: steven 51M with esophageal cancer and severe protein calorie malnutrition admitted 08/02/21 for Jtube placement, and montioring for tolerance of feeds. unfortunately karsten has not been tolerating feeds, has been nauseous with vomitting. medical consult requested for STEVEN, with creatinine of 1.88, from 0.8 on 08/02/21. patient reports weakness, nausea, + urine output. Review of Systems Review of Systems: Constitutional: weight loss Eyes: denies blurry vision ENT: denies sore throat CVS: denies chest pain Respiratory: Denies dyspnea GI: nasuea : denies dysuria MSK: denies neck pain Skin: denies rash Neuro: denies specific motor weakness Psych: denies suicidal ideation Endocrine: denies heat/cold intolerance Hematologic: denies easy bleeding Allergy: denies hives [facility] Medical History Asthma Barretts esophagus Dysphagia GERD (gastroesophageal reflux disease) Personal history of nicotine dependence Rheumatoid arthritis Family History Brother Eosinophilic esophagitis Father HTN (hypertension) DM2 (diabetes mellitus, type 2) Paternal Grandfather Colon cancer Surgical History History of endoscopy History of esophagogastroduodenoscopy (EGD) S/P jejunostomy Social History Patient Tobacco Use Status: Current everyday Tobacco user Tobacco use type: Cigarette Cigarette Packs Per Day: 0.5 Cigarettes Per Day: 10 Use of substances other than those prescribed or required for medical reasons: No Currently Displaying Signs/Symptoms of Drug Intoxication Withdrawal: No Are you DNR?: No Advance Directives: No service: No Current occupational status: disabled Meds Allergies Allergy/AdvReac Type Severity Reaction Status Date / Time Penicillins [PCN] Allergy Unknown Verified 07/25/21 11:22 Active Medications: Current Medications Albuterol Sulfate (Albuterol Sulfate 90 Mcg 8 Gm Inhaler) 2 puff INHALE Q6H PRN PRN Reason: Shortness Of Breath Enoxaparin Sodium (Enoxaparin Sodium 40 Mg/0.4 Ml Syringe) 40 mg SUBCUT Q24H [facility] Last Admin: 08/04/21 17:07 Dose: 40 mg Documented by: Promethazine HCl 12.5 mg/ (Sodium Chloride) 50.5 mls @ 202 mls/hr IV Q6H PRN PRN Reason: Nausea and Vomiting Acetaminophen (Ofirmev) 1,000 mg in 100 mls @ 400 mls/hr IV Q6H [facility] Last Infusion: 08/05/21 08:29 Dose: Infused Documented by: Dextrose/Sodium Chloride (D5ns) 1,000 mls @ 125 mls/hr IVCONT .Q8H [facility] Last Admin: 08/05/21 03:57 Dose: 80 mls/hr Documented by: Leflunomide (Leflunomide 10 Mg Tablet) 10 mg PO DAILY [facility] Last Admin: 08/05/21 08:06 Dose: Not Given Documented by: Melatonin (Melatonin 3 Mg Tablet) 3 mg PO BEDTIME PRN PRN Reason: Insomnia Metoclopramide HCl (Metoclopramide Hcl 10 Mg/2 Ml Vial) 5 mg IVPUSH Q4H PRN PRN Reason: Nausea Last Admin: 08/05/21 10:34 Dose: 5 mg Documented by: Mineral Oil (Mineral Oil Enema 133 Ml Enema) 133 ml KS ONCE PRN PRN Reason: Constipation Last Admin: 08/04/21 18:30 Dose: 133 ml Documented by: Morphine Sulfate (Morphine Sulfate 4 Mg/Ml Cartridge) 4 mg IVPUSH Q3H PRN; Protocol PRN Reason: Pain, Severe (Pain Scale 7-10) Last Admin: 08/05/21 10:34 Dose: 4 mg Documented by: Omeprazole (Omeprazole 20 Mg/10 Ml Susp.Recon) 40 mg PO BID@0630,1630 [facility] Last Admin: 08/05/21 06:13 Dose: 40 mg Documented by: Ondansetron HCl (Ondansetron Hcl 4 Mg/2 Ml Vial) 4 mg IVPUSH Q8H PRN PRN Reason: Nausea and Vomiting Last Admin: 08/05/21 04:04 Dose: 4 mg Documented by: Oxycodone HCl (Oxycodone Hcl Immed Release 5 Mg Tablet) 5 mg PO Q4H PRN PRN Reason: Pain, Moderate (Pain Scale 4-6 Last Admin: 08/04/21 14:12 Dose: 5 mg Documented by: Pharmacy Consult (Consult Rx Perform Med Rec) 1 each MISCELLANE ONCE PRN PRN Reason: Consult order Sodium Chloride (0.9 % Sodium Chloride Flush 3 Ml Syringe) 3 ml IVFLUSH QSHIFT ZHOU Last Admin: 08/05/21 08:06 Dose: Not Given Documented by: Home Medications Medication Instructions Recorded Confirmed Last Taken Type albuterol sulfate 90 mcg/actuation 2 puff INHALATION Q6H PRN 07/14/21 08/02/21 Unknown History aerosol inhaler leflunomide 10 mg tablet 1 tab PO DAILY 08/02/21 08/02/21 Unknown History omeprazole 40 mg capsule,delayed 1 cap PO BID 08/02/21 08/02/21 Unknown History release testosterone cypionate 200 mg/mL 1 ml IM Q2W 08/02/21 08/02/21 Unknown History intramuscular oil Physical Exam Vital Signs and Narrative: Vital Signs: Last Vital Signs Temp 98.0 F 08/05/21 04:00 Pulse 118 H 08/05/21 08:30 Resp 16 08/05/21 04:00 BP 94/60 08/05/21 08:30 Pulse Ox 95 08/05/21 04:00 BMI result Body Mass Index 14.9 General: cachexic, ill appearing HEENT: atraumatic Neck: normal to visual inspection CVS: S1, S2, RRR Resp: CTA bilateral Chest: non tender GI: soft, non tender, distended : no CVA tenderness Skin: no rashes Extremities: no edema Neuro: Oriented X3, grossly intact Psych: cooperative Results Labs CBC and Chem 7: 08/05/21 05:30 08/05/21 05:30 Labs: Laboratory Results - last 24 hr 08/05/21 08/05/21 08/05/21 05:30 05:30 05:30 MCV 91.1 MCH 29.4 MCHC 32.2 RDW 15.9 Plt Count 153 L MPV 9.8 Absolute Nucleated RBC 0.000 Nucleated RBC % (auto) 0.0 Anion Gap 15 Estim Creat Clear Calc 32.0 Estimated GFR 38 Random Glucose 178 H Calcium 8.1 L D Phosphorus 5.9 H Magnesium 2.1 Imaging Radiologist's Impressions: Impressions KUB X-Ray 08/05/21 09:04 IMPRESSION: 1. No significantly dilated loops small bowel representing interval improvement from the previous study with jejunostomy tube in place. 2. Moderate to large colonic stool burden appears mildly increased. Correlate with stool output. Assessment and Plan (1) STEVEN (acute kidney injury): Status: Acute Plan 51M with esophogeal CA admitted for Jtube placement, not tolerating feeds, now with STEVEN STEVEN likely hypovolemic rule out obstruction - check pvr continue iv fluids, monitor bmp, avoid NSAIDs mild hyperkalemia 5.3 monitor severe protein calorie malnutrition due to esophogeal ca
[2021-08-05 11:35] VITALS: BP 98/55; RESP 18; TEMP 36.8
--- NOTE | 2021-08-05 14:07 | PC.NURSE ---
pt bladder scanned for 158 ml.
[2021-08-05] MEDS: Dextrose 5 % and 0.9 % NaCl 1,000 ML 125 ML IVCONT (14:44)
[2021-08-05] MEDS: Enoxaparin Sodium 40 MG/0.4 ML SYRINGE SUBCUT (14:45)
--- NOTE | 2021-08-05 15:59 | PM.EVENT ---
Event Note Date of Service: 08/05/21 Event Note: seen multiple times today exam remains the same stil with incisional pain, although he says he seems to have better control today urine output remains low Vilchis therefore inserted - urine appears very concentrated keep Jej tube to low intermittent suction - output dark bilious give another bolus of IVF pain mgt Toradol dc'ed labs ordered for tomorrow dw Hospitalist earlier
[2021-08-05 16:00] VITALS: BP 97/53; PULSE 116; RESP 18; TEMP 37.1
[2021-08-05] MEDS: 0.9 % Sodium Chloride 500 ML 250 ML IVCONT (16:25)
[2021-08-05 20:31] LABS: Glucose, Whole Blood 33 mg/dL (60-115)
[2021-08-05 20:31] LABS: Glucose, Whole Blood < 10 mg/dL (60-115)
[2021-08-05 20:31] LABS: Glucose, Whole Blood 91 mg/dL (60-115)
[2021-08-05 20:31] LABS: Glucose, Whole Blood < 10 mg/dL (60-115)
[2021-08-05 20:31] LABS: Glucose, Whole Blood < 10 mg/dL (60-115)
--- NOTE | 2021-08-05 20:45 | P.EN_ITS ---
Event Note Date of Service: 08/05/21 Event Note: rapid response note: Around 8PM BLOOD BANK LABORATORY TECHNICIAN was called in; mentioning patient blood pressure and oxygen was not recordable; event in examined the patient, patient is alert and awake, follows simple commands, oriented x2, blood pressure was not recordable, noted cold peripheries with decreased capillary refill, oxygen was also not recordable but patient has equal air entry bilaterally; no adventitious sounds; per RN no concern for any mucus or mucous plugging. Chest x-ray showed no new changes. EKG showed right bundle-branch block; tachy to 120s; Patient was given nebulizer treatment; placed on non-rebreather; oxygenation gradually improved to 90s- but limited by cold extremities. Patient's blood sugar was not detectable on the initial read. Ordered for stat labs. Hypotension: Likely in the setting of volume depletion. Patient reported lightheadedness. Per RN patient 2 fetus has been on hold as patient was not able to tolerate. Patient is status post PEG tube placement. Patient had 30 cc/kg IV fluid repletion. On thigh pt's BP was noted to be 90s systolic; not able to obtain BP on upper extremities As there was no significant improvement in the blood pressure patient was started on low-dose Levophed peripherally. ICU team Cristina was at bedside,was being planned for central line/Intubation. Hypoglycemia: Patient blood sugar was not detectable likely secondary to calorie malnutrition. Patient on D5 NS. Patient given D50 ampule x3 and glucagon x1 Fingerstick glucose gradually improved to 90s, which was initially Detectable. Hypoxia: Likely abnormal reading from reduced capillary refill. Patient is equal air entry. Chest x-ray showed no new changes. Placed on supplemental [id number]. spoke to Dr. Hassan - ICU attending.
--- NOTE | 2021-08-05 21:22 | PM.EVENT ---
Event Note Date of Service: 08/05/21 Event Note: note: Around 21:00 on 08/05/2021 patient became acutely bradycardic. ICU team Cristina was at bedside; zion raza was called. ACLS protocol was run. patient received few doses of epinephrine. No significant response was noted. Patient pronounced at 21:15 on 08/05/2021. Family and Primary team (general surgery ) was notified.
--- NOTE | 2021-08-05 21:43 | PM.CCN ---
Critical Care Event Note Summary Date of Service: 08/05/21 Code activated: Yes Narrative: This case had a high probability of a clinically significant, sudden, or life threatening deterioration of this patient's condition which required my full and direct attention, intervention and personal management. Critical Care Time (minutes): 90 Comment: Rapid response called overhead at 07:45 to which myself and an ICU nurse responded. Dr Torres, electrical maintenance man, was at the bedside. Pt is a 51yo male who was admitted on August 02 due to severe malnutrition 2/2 esophageal cancer, a J-tube was placed by surgery on 08/02. Vitals from earlier today showed pt had been tachycardic since 4am and soft BP's since 11:35am. Labs from this AM showed pancytopenia, K 5.3, BUN 54, creatinine 1.88, calcium 8.1, phos 5.9 and albumin 2.6. We were unable to obtain an O2 sat and blood pressure. Pt was placed on the ZOLL and pad were applied, patient was tachycardic in the low 120s, afebrile. Patient was mentating and able to answer questions, alert and oriented to self and time but not location. Patient's blood sugar was found to be ?low ?on the glucometer. We pushed 3 amps of D50 and glucagon and his blood sugar came up to 90. Patient only had 1 IV so our ICU nurse placed a 2nd in the right upper arm. Pt was receiving fluids, 2 L simultaneously in each arm. Blood pressure was still not detectable so we started Levophed. Pt was still mentating and answering my questions and the hospitalists questions. EKG showed new RBBB. Lungs sounds were bronchovesicular, heart sounds were difficult to hear over the lung sounds. Patient was severely dehydrated and the laboratory specialist was unable to draw labs, ICU nurse unable as well. RT unable to draw an ABG. Patient became less alert, pulse rate was coming down, we decided to intubate the pt at this time; we were able to get a blood pressure of 90/55. Just prior to intubation, pulse was untectable, rhythm was PEA so I called a code blue overhead at 9:05pm. Chest compressions were immediately started. We gave 4 rounds of epinephrine, 1 amp sodium bicarb. At each pulse check, the rhythm was asystole and we were unable to detect a pulse. Patient had copious amounts of thin brown liquid in the back of his throat, I suctioned about 100mL's. Dr Merino from the ED came to the bedside and took over the code, he intubated and called the code at 9:15pm. Critical Care Time Critical Care Time (minutes): 90
--- NOTE | 2021-08-05 21:47 | PM.EVENT ---
Event Note Date of Service: 08/05/21 Event Note: informed by Hospitalist that patient coded and after attempts at resucitation preceding events reviewed with Hospitalist and nurse - pt noted to be less responsive, POC showed blood sugar to be undetectable, given D50; pt's became more responsive but BP low decision was made to bring pt to ICU; started on pressors prior to transfer but pt became bardycardic and arrested ACLS unsuccesful pt pronounced at 915p family informed by Hospitalist postmortem care ordered
--- NOTE | 2021-08-05 22:19 | PC.NURSE ---
1950 pt barely responsive,color gomez unable to get a b/p or 02 sats.rapid response called.ekg,cxr and labs ordred.poc x2 not registering a blood sugar 2 amps of d50 iv given after 2nd amp blood sugar 33.3rd dose of d50 given repeat blood sugar 91.1 liter ns bolus given and d5ns bolus given.pt also received iv glucagen and iv levophed started.2100 code called and code ended at 2114 pt . notified family and will be in to see pt.[facility] [employer] called and declined pt.ref #[id number].family to take belonings.
--- NOTE | 2021-08-06 10:55 | P.DS_ITS ---
DS: Providers Provider Date of Service: 08/02/21 Date of admission: 08/02/21 10:39 Date of discharge: 08/05/21 Primary care physician: Jose Hill MD Consults: 08/05/21 09:18 Consult to Hospitalist Routine Consulting Provider: Hospitalist Reason For Exam: elevated BUN crea DS: Diagnosis Discharge Diagnosis (1) STEVEN (acute kidney injury): Status: Acute DS: Summary Hospital Course Hospital Course: 51-year-old male with esophageal cancer, and inability to swallow food, underwent jejunostomy tube placement with Dr. Sommers on August 02, 2021 for severe protein calorie malnutrition. He tolerated procedure well. However he significant persistent postop pain requiring frequent IV pain medications. He started on tube feeds postop day 1 and the rate was slowly advanced to goal. However did have significant distant nausea, and vomiting. The balloon from his jejunostomy tube was deflated in case this was causing some obstruction of passage of more proximal enteric contents. In view of his persistent pain and vomiting, abdominal x-rays nipple views were done on July 15, 2021. This showed ileus without any other significant findings. He continued to have postop pain as well as nausea. I placed his jejunostomy tube to low wall suction on August 05 to help achieve comfort with this ileus. His tube feeds were also. Because of his persistent pain and vomiting. He did state later on during the day that he feel his pain had improved to some extent but his vomiting had lessened. His BUN/creatinine jumped up to 57 and 1.8 from and 0.8 on August 05 as well. I had given him IV boluses and had consulted the hospitalist service for this. His urine output was also low and appeared concentrated so I inserted a Vilchis catheter as well for better monitoring. On the production supervisor off shift of August 05 he was noted to be less responsive. His blood sugars on POC were very low so he was given boluses of D50. He had some improvement in his mental status. However, his blood pressure remained low and he was tachycardic. The ICU service was consulted so he could be transferred to the ICU. He was started on low-dose pressor but he became extremely sandra cardic and went into arrest. ACLS protocol was initiated without success. He was pronounced by the hospitalist service at 915pm. Family was informed. Postmortem care was ordered. Time Spent with Patient Time attestation: Total time spent providing and/or coordinating discharge services: Discharge coordination time: Less than 30 minutes Specific discharge activities: N/A Quality: Safe Use of Opioids Does Pt have an Active Cancer Diagnosis on the Problem List?: Yes Opioid Measure Date for [facility] Report: 07/10/21 Opioid Measure Time for [facility] Report: 08:04 Quality: Stroke Does the patient have a stroke diagnosis?: No Physical Exam Vital Signs: Vital Signs: Last Vital Signs Temp 98.8 F 08/05/21 16:00 Pulse 116 H 08/05/21 16:00 Resp 18 08/05/21 16:00 BP 97/53 L 08/05/21 16:00 Pulse Ox 95 08/05/21 04:00 BMI result Body Mass Index 14.9 DS: Data Data Completed and Pending Labs on day of discharge: Laboratory Results - last 24 hr 08/05/21 08/05/21 08/05/21 19:55 19:58 20:07 POC Glucose < 10 L* < 10 L* < 10 L* 08/05/21 08/05/21 20:11 20:21 POC Glucose 33 L* 91 Discharge Plan Discharge Date/Time: 08/05/21 21:15 Patient Disposition: Discharge Diagnosis: esophageal cancer, s/p jejunostomy tube placement Referrals: Saiqb Sommers MD [Physician] - 1 Week Jose Hill MD [Primary Care Provider] - 1 Week Discharge Medications: No Action leflunomide 10 mg tablet 1 tab PO DAILY 0RF omeprazole 40 mg capsule,delayed release(DR/EC) 1 cap PO BID 0RF testosterone cypionate 200 mg/mL oil 1 ml IM Q2W 0RF albuterol sulfate 90 mcg/actuation HFA aerosol inhaler 2 puff inhalation Q6H PRN (Reason: Shortness Of Breath) 0RF Diet: advance to usual diet Activity on Discharge: No heavy lifting Activity Restrictions/Additional Instructions: Patient Discharge Date/Time: 08/05/21 21:15
== END 2021-08-05 21:15 | disposition expired | DRG 374 ==
LOC: HO.S3 08-06 01:22 → HO.SSS 08-10 12:59 → HO.SSSA 08-10 12:59
PROVIDERS: Anesthesiology; PCP Family Medicine; Visit Provider Surgery
PROC: (CPT 49441; principal; 2021-08-02 12:20)
DX: C15.5 Malignant neoplasm of lower third of esophagus (principal); E43 Unspecified severe protein-calorie malnutrition; Z68.1 Body mass index [BMI] 19.9 or less, adult; K56.7 Ileus, unspecified; R64 Cachexia; N17.9 Acute kidney failure, unspecified; E87.5 Hyperkalemia; E86.1 Hypovolemia; I95.9 Hypotension, unspecified; R13.10 Dysphagia, unspecified; E86.0 Dehydration; E16.2 Hypoglycemia, unspecified; R09.02 Hypoxemia; I45.10 Unspecified right bundle-branch block; M06.9 Rheumatoid arthritis, unspecified; Z20.822 Contact with and (suspected) exposure to COVID-19; J45.909 Unspecified asthma, uncomplicated; K21.9 Gastro-esophageal reflux disease without esophagitis; F17.210 Nicotine dependence, cigarettes, uncomplicated; Z71.6 Tobacco abuse counseling; Z88.0 Allergy status to penicillin; Z79.899 Other long term (current) drug therapy
CPT/HCPCS: 44300; 36415; 71045; 74018; 74021; 80048; 82040; 82947; 83735; 84100; 85027; 87635; 93005; 97162; 99024; C1758; J0131; J0171; J1650; J1885; J2250; J2270; J2405; J2765; J3010; J3370